=== PATIENT | female | born 1945 | race Caucasian/White ===

== ENCOUNTER 2023-10-28 11:56 | Outpatient (CLI) | payer MEDICARE, OTHER, SELFPAY ==
--- NOTE | 2023-10-28 12:49 | W.ANESCHARGE ---
Anesthesia Charges Start Date/Time Anesthesia Start Date: 10/28/23 Anesthesia Start Time: 13:15 Stop Date/Time Anesthesia Stop Date: 10/28/23 Anesthesia Stop Time: 13:30 Summary Extremes of Age - Over 70 or under 1: MDA
--- NOTE | 2023-10-28 13:33 | W.ANESCHARGE ---
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
== END 2023-10-28 11:57 | disposition home or self-care (01) ==
LOC: OP CLINIC 11:59
PROVIDERS: PCP Student in an Organized Health Care Education/Training Program; Visit Provider Internal Medicine Gastroenterology
DX: R10.13 Epigastric pain (principal); K44.9 Diaphragmatic hernia without obstruction or gangrene; R11.0 Nausea
CPT/HCPCS: 00731; 43239; 88305; 99100; J2704

== ENCOUNTER 2023-11-14 13:10 | Outpatient (RCR) | payer MEDICARE, OTHER, SELFPAY ==
--- NOTE | 2023-11-14 14:33 | PT.OPEX ---
PT [facility] PT [facility] Eval Start: 11/14/23 13:12 Freq: Status: Active Protocol: Document 11/14/23 13:13 CRP (Rec: 11/14/23 14:32 CRP [id number]) E-signed By David Medel PT Physical Therapy Outpatient Evaluation Insurance Information Recert Due Date 11/29/23 Insurance Name Medicare B Medical Diagnosis Pre-op ELIU Referring MD Dr Queen Subjective Subjective Pt reports that she has had issues of L hip pain. Began with just feeling like she strained her groin. About a month ago she started having L hip pain and pain that radiated down her ant thigh. Pt has some degree of pain at all times. 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 Needs to be careful of how she sits due to pain as well. Pt walks with a cane. Does not have a specific exer routine. Lives in home with 10 + steps down to basement and 10+ up to upper level. Usually would walk daily in the neighborhood and has generally been very active but cannot do that now secondary to pain. Pt is scheduled for ELIU 11-29-23 and is here in PT to learn pre-op exercises and strategies. PMHx: Hiatal hernia, bilat TKA , R ELIU, pacemaker Pain Comments 12/28 when most painful Current Work Status Retired Objective Other/Pertinent Objective Gait: Amb with Single end cane Sit to stand with needing to partially push up using hands Sit<>Supine slow and guarded with significant difficulty bringing L LE up onto table Hip ROM: R WFL. L flex 90 deg with pain, ER 30 deg, IR to neutral. All motions painful. MMT: Hip flex L - unable to hold against gravity. Hip abd 4-/5. Hip ext - unable to test. Knee flex L 4-/5. Knee ext L 4-/5 Assessment Assessment/Impression Pt presents to the clinic with ongoing issues of pain and loss of function secondary to L hip DJD. Pt attended PT today for a one time pre-op visit to learn exercise to prepare for her surgery. Pt showed a good understanding of her HEP and all questions were answered. Pt will return to PT following her surgery if needed. 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 Coordination/Communication With Referral Source Treatment Plan/Direct Interventions Self-Care/Home Management, Therapeutic Activities, Therapeutic Exercises Frequency/Duration One time pre-op visit Patient Will Be Discharged From Therapy Independent w/HEP Evaluation Billing Untimed Code Treatment Minutes 30 Complexity Moderate Certification Information Initial Certification Date 11/14/23 Ending Certification Date 11/29/23 Provider Signature Required Yes Provider Signature Shows Agreement With POC & Medical Necessity Physician NPI Number Write NPI# Here Physician Comment/Change : Physician Signature & Date Requested Please Sign/Date Here
== END 2024-03-13 23:59 | disposition home or self-care (01) ==
PROVIDERS: PCP Internal Medicine; Visit Provider Orthopaedic Surgery
DX: M16.12 Unilateral primary osteoarthritis, left hip (principal); Z96.642 Presence of left artificial hip joint; Z51.89 Encounter for other specified aftercare
CPT/HCPCS: 97110; 97162

== ENCOUNTER 2023-11-29 07:17 | Day surgery (SDC) | payer MEDICARE, OTHER, SELFPAY ==
[2023-11-29] VITALS (30 sets, daily range): BP systolic 102–156; BP diastolic 58–117; PULSE 60–86; RESP 10–18; TEMP 36.1–36.8; O2SAT 91–100; BMI 21.1
[2023-11-29] MEDS: SODIUM CHLORIDE 0.9 % (FLUSH) 10 ML SYRINGE IVF ×2 (07:40→16:50)
[2023-11-29] MEDS: LACTATED RINGERS 1000 ML 1,000 ML 100 ML IV ×2 (07:40→10:56)
[2023-11-29] MEDS: MIDAZOLAM HCL 1 MG/ML inj IVP (08:40)
[2023-11-29] MEDS: fentaNYL 100 MCG/2 ML inj IVP (08:40)
--- NOTE | 2023-11-29 08:55 | SUR.PREOP ---
TIME?OUT:?0845 PT/Willem COLEMAN RN/Iker BARRY MDA?VERIFICATION?OF?SURGICAL?SITE,?PROCEDURE,?AND?CONSENT OBTAINED?PRIOR?TO?INVASIVE?PROCEDURE.
--- NOTE | 2023-11-29 08:58 | W.ANESCHARGE ---
Anesthesia Charges Start Date/Time Anesthesia Start Date: 11/29/23 Anesthesia Start Time: 09:17 Stop Date/Time Anesthesia Stop Date: 11/29/23 Anesthesia Stop Time: 11:32 Summary Extremes of Age - Over 70 or under 1: MDA
--- NOTE | 2023-11-29 08:59 | P.NB_ITS ---
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 Images saved: Yes Medications given in 5ml increments after negative aspiration: Ropivicaine %: 0.5 mL: 30 Needle gauge: 20 Decadron (mg): 10 Precedex (mcg): 25 Patient tolerated procedure well: Yes Additional comments: Needle noted below psoas tendon needle noted adjacent to LFCN Block Charges Block Charge (with Pro Fee): Other Periph Nerve Block Use of Ultrasound Machine for Block: Yes- US Guidance/pain block
[2023-11-29] MEDS: CEFAZOLIN 2 GM INJ IVP (09:29)
[2023-11-29] MEDS: TRANEXAMIC ACID 100 MG/ML INJ 1000 MG IV (09:30)
--- NOTE | 2023-11-29 09:45 | CRLHL7_ITS ---
For Patients: As a result of the Cures Act, medical imaging exams and procedure reports are released immediately into your electronic medical record. You may view this report before your referring provider. If you have questions, please contact your health care provider. Indication: Hip replacement surgery Technique: AP hip fluoroscopic images. Fluoroscopy time 54.4 seconds. Findings/Impression: Hardware from a left total hip arthroplasty is in satisfactory position. Dictated by Corey Escalante MD @ 11/29/2023 12:22:11 PM (Electronically Signed)
--- NOTE | 2023-11-29 10:48 | CRLHL7_ITS ---
For Patients: As a result of the Cures Act, medical imaging exams and procedure reports are released immediately into your electronic medical record. You may view this report before your referring provider. If you have questions, please contact your health care provider. Indication: Postop left hip Technique: AP pelvis and lateral view left hip Findings/Impression: Hardware from a left total hip arthroplasty is in satisfactory position. Bone alignment is normal. No sign of acute fracture. Postop changes are within normal limits. Dictated by Corey Escalante MD @ 11/29/2023 12:19:53 PM (Electronically Signed)
--- NOTE | 2023-11-29 10:53 | PM.ORPRC ---
Procedure Note Date of procedure: 11/29/23 Procedure: PREOPERATIVE DIAGNOSIS: Left hip osteoarthritis POSTOPERATIVE DIAGNOSIS: Left hip osteoarthritis NAME OF OPERATION: Left total hip arthroplasty SURGEON: Pelon Queen MD INSURANCE APPLICATION INVESTIGATOR: Selam Graves PA-C, REGAN Mancia IMPLANTS: 1. [employer] # 52 sector ingrowth cup 2. 36 x 52 +4 neutral polyethylene 3. Actis # 6 standard collared ingrowth stem 4. 36 + 1.5 ceramic femoral head ANESTHESIA: General ESTIMATED BLOOD LOSS: 250 cc COMPLICATIONS: None SPECIMENS: None DRAINS: None PREOPERATIVE ANTIBIOTICS: Ancef 1 g INDICATIONS: The patient is a 78-year-old with a longstanding history of severe, unrelenting left hip pain secondary to end-stage left hip osteoarthritis. Despite appropriate nonoperative management, including activity modification, use of an assist device, anti-inflammatories, [id number] pain medication, physical therapy and injections, they continue to have pain and disability. Operative intervention was offered. The risks, benefits and expected outcomes were discussed in detail. These included but were not limited to: Infection, bleeding, injury to blood vessel or nerve, venous thromboembolism. All questions were answered to their satisfaction. Use of an assistant federal public defender was necessary throughout the case for patient positioning and safety, soft tissue retraction and closure. PROCEDURE: The patient was placed supine on the [place] table. General anesthesia was administered. The assistant federal public defender made sure the patient was properly positioned. The left hip was prepped and draped in the usual sterile fashion. The image intensifier was brought in for a perfect AP pelvis and a perfect double tear drop AP view of each hip which were used for intraoperative templating with our fluoroscopic guide. An oblique incision was made 3 cm distal and 3 cm lateral to the anterior superior iliac spine. The assistant federal public defender retracted the soft tissues to protect them. Subcutaneous dissection was taken with electrocautery to the superficial fascia. The fascia was divided in line with the incision. Blunt dissection was carried medially to the tensor fascia charleen and sartorius interval. Deep dissection was carried with electrocautery. The circumflex vessels were cauterized and divided. The capsule was exposed and then divided in a T-fashion, tagged with #1 Ethibond sutures. Retractors were placed in the joint, held by the assistant federal public defender. The corkscrew was placed in the femoral head. The neck cut was made in the subcapital region. We made a second neck cut more distal. The napkin ring of bone was removed. The femoral head was removed intact. Acetabular retractors were placed, held by the assistant federal public defender. The labrum was sharply debrided. The capsule was released. The 43 mm reamer was used to the true medial wall. We then enlarged in 2 mm increments using the image intensifier for our reamer placement. We impacted the cup which had excellent purchase. We placed the polyethylene. Attention was then turned to the proximal femur. The limb was placed in 140 degrees of external rotation, maximum extension and adduction. A significant amount of time was spent releasing the capsule to allow us to deliver the femur into the wound and complete the femoral side safely. Retractors were held by the assistant federal public defender throughout the femoral preparation. The box stapler and canal finder were used. Broaches were used to a stable size. The calcar reamer was used. Trial components were placed. The hip was reduced and was found to be stable with appropriate soft tissue tension. Length and offset had been nicely restored using the image intensifier and our fluoroscopic guide. Trial components were removed. The stem was impacted. We placed the femoral head. Again, the hip was reduced and was found to be stable with appropriate soft tissue tension. Length and offset had been nicely restored. The assistant federal public defender did a three minute dilute Betadine solution soak. The assistant federal public defender irrigated the wound with 3 liters of normal saline via pulse lavage. The assistant federal public defender repaired the anterior capsule with a #1 Vicryl and our previously placed Ethibond sutures. The assistant federal public defender closed the fascia over the tensor fascia charleen with a #1 PDO Stratafix, subcutaneous tissues with 2-0 Vicryl, skin with a running 3-0 Stratafix and glue. A dry dressing was applied by the assistant federal public defender. Sponge and needle counts were correct x 2. The patient tolerated the procedure well; there were no apparent complications. They were awakened and extubated in the operating room, sent to the Post-Anesthesia Care Unit in satisfactory condition. PLAN: 1. The patient will be mobilized with physical therapy, weight-bearing as tolerates 2. Xarelto x 5 days then aspirin x 30 days will be used for DVT prophylaxis 3. The patient will be discharged once medically appropriate
--- NOTE | 2023-11-29 11:35 | P.ANES_ITS ---
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
[2023-11-29] MEDS: CEFAZOLIN 1 GM in 0.9 % SODIUM CHLORIDE Mini-bag 100 ML IVPB ×2 (16:38→23:39)
[2023-11-29] MEDS: HYDROmorphone 0.5 mg/0.5 ml inj IVP ×2 (16:39→18:43)
[2023-11-29] MEDS: LACTATED RINGERS 1000 ML 1,000 ML 75 ML IV (16:41)
--- NOTE | 2023-11-29 17:44 | P.IMCN_ITS ---
Date of Consult Patient: [facility] Patient Consult date: 11/29/23 Primary Care Provider: Eli Quintanilla MD Consult Narrative Reason for consult: Medical management Narrative: Kiara Britton is a 78 year old female with a history of DM II, hypertension, hyperlipidemia, non-ischemic cardiomyopathy status post ICD implantation a who was admitted today for left total hip arthroplasty. Patient 's congestive heart failure looks compensated and her diabetes is under reasonable control. When I met the pt, she looked comfortable post-op, hemodynamically stable. Pain is controlled with medication. No urinary symptoms, last bowel movement was today morning. Patient is tolerating liquids and she is about to have dinner. Review of Systems Status of ROS: Reports: 10 or more systems reviewed and unremarkable except as noted in History and below PFSH COUNT INCLUDES THE [facility] Medical History (Updated 11/29/23 @ 18:02 by Elissa Jensen MD) Normocytic anemia ?D64.9 - Anemia, unspecified (ICD-10) Droopy eyelid ?H02.409 - Unspecified ptosis of unspecified eyelid (ICD-10) Sensorineural hearing loss (SNHL) of both ears ?H90.3 - Sensorineural hearing loss, bilateral (ICD-10) Hyperplastic colon polyp ?K63.5 - Polyp of colon (ICD-10) Diverticulosis of colon ?K57.30 - Diverticulosis of large intestine without perforation or abscess without bleeding (ICD-10) Weight loss, unintentional ?R63.4 - Abnormal weight loss (ICD-10) Scoliosis ?M41.9 - Scoliosis, unspecified (ICD-10) Ankylosing spondylitis ?M45.9 - Ankylosing spondylitis of unspecified sites in spine (ICD-10) GERD (gastroesophageal reflux disease) ?K21.9 - Gastro-esophageal reflux disease without esophagitis (ICD-10) Hyperlipidemia ?E78.5 - Hyperlipidemia, unspecified (ICD-10) Nonischemic cardiomyopathy ?I42.8 - Other cardiomyopathies (ICD-10) Chronic systolic CHF (congestive heart failure) ?I50.22 - Chronic systolic (congestive) heart failure (ICD-10) LBBB (left bundle branch block) ?I44.7 - Left bundle-branch block, unspecified (ICD-10) Hypertension ?I10 - Essential (primary) hypertension (ICD-10) Anxiety ?F41.9 - Anxiety disorder, unspecified (ICD-10) Diabetes ?E11.9 - Type 2 diabetes mellitus without complications (ICD-10) Hiatal hernia ?K44.9 - Diaphragmatic hernia without obstruction or gangrene (ICD-10) Fifth disease ?B08.3 - Erythema infectiosum [fifth disease] (ICD-10) Cardiac defibrillator in place ?Z95.810 - Presence of automatic (implantable) cardiac defibrillator (ICD-10) Pacemaker ?Z95.0 - Presence of cardiac pacemaker (ICD-10) Surgical History (Updated 11/29/23 @ 17:57 by Elissa Jensen MD) History of hand surgery ?Z98.890 - Other specified postprocedural states (ICD-10) History of left knee replacement ?Z96.652 - Presence of left artificial knee joint (ICD-10) History of knee replacement procedure of right knee ?Z96.651 - Presence of right artificial knee joint (ICD-10) History of tonsillectomy ?Z90.89 - Acquired absence of other organs (ICD-10) History of hysterectomy ?Z90.710 - Acquired absence of both cervix and uterus (ICD-10) History of appendectomy ?Z90.49 - Acquired absence of other specified parts of digestive tract (ICD- 10) History of total right hip replacement (08/24/16) ?Z96.641 - Presence of right artificial hip joint (ICD-10) Social History Smoking Status: Never smoker How often do you have a drink containing alcohol: 2-4 times a month AUDIT-C Alcohol total score: 2 Non-prescribed substance use: denies use Caffeine: Yes Meds Home Medications and Allergies Home Medications ?Medication ?Instructions ?Recorded ?Confirmed ?Type acetaminophen 500 mg tablet 500 mg PO Q6H PRN 11/09/23 11/29/23 History (Tylenol Extra Strength) blood sugar diagnostic (True #10 ea 11/09/23 11/09/23 History Metrix Glucose Test Strip) buspirone 5 mg tablet 5 mg PO BID 11/09/23 11/29/23 History carvedilol 12.5 mg tablet 12.5 mg PO BID 11/09/23 11/29/23 History empagliflozin 10 mg tablet 10 mg PO DAILY 11/09/23 11/29/23 History (Jardiance) metformin 500 mg tablet,extended 500 mg PO BID 11/09/23 11/29/23 History release 24 hr ondansetron 4 mg disintegrating 4 mg PO Q8H PRN 11/09/23 11/29/23 History tablet pantoprazole 40 mg tablet,delayed 40 mg PO DAILY 11/09/23 11/29/23 History release paroxetine HCl 20 mg tablet 20 mg PO DAILY 11/09/23 11/29/23 History pravastatin 80 mg tablet 80 mg PO QPM 11/09/23 11/29/23 History sacubitril 24 mg-valsartan 26 mg 1 tab PO BID 11/09/23 11/29/23 History tablet (Entresto) Allergies Allergy/AdvReac Type Severity Reaction Status Date / Time clarithromycin [From Biaxin] Allergy Unknown Verified 11/29/23 07:34 aspirin Allergy Verified 11/29/23 07:34 [From Excedrin Migraine] caffeine Allergy throat Verified 11/29/23 07:34 [From Excedrin Migraine] swelling lisinopril [From Zestril] Allergy Cough Verified 11/29/23 07:34 oxycodone Allergy Hallucinati Verified 11/29/23 07:34 ng Penicillins Allergy Rash Verified 11/29/23 07:34 pollen extracts Allergy throat Verified 11/29/23 07:34 swelling propoxyphene Allergy throat Verified 11/29/23 07:34 swelling spider venom Allergy Anaphylaxis Verified 11/29/23 07:34 strawberry Allergy Hives Verified 11/29/23 07:34 tobramycin-dexamethasone Allergy Rash Uncoded 11/09/23 09:42 Exam Narrative: Exam Narrative: Physical exam GENERAL: Pleasant, comfortable, no acute distress. HEAD AND NECK: Atraumatic, normocephalic CARDIOVASCULAR: RRR. Normal S1, S2. No murmurs. RESPIRATORY: Clear to auscultation B/L. Good air entry B/L. No wheezes or rhonchi. GASTROINTESTINAL: Not distended, not tender to palpation. NEUROLOGY: Alert, awake, oriented X 3. Normal speech. PSYCH: Normal mood, normal affect. Const: Vital Signs, click to edit/add: Vital Signs - 24 hr 11/29/23 07:47 11/29/23 08:40 11/29/23 08:45 Temperature 97.9 F Pulse Rate 73 62 63 Pulse Rate [Pulse Oximeter] Respiratory Rate 16 16 16 Blood Pressure 139/117 H 156/60 H 138/71 Pulse Oximetry 95 100 100 Oxygen Delivery Me thod Room Air Nasal Cannula Nasal Cannula Oxygen Flow Rate 3 3 11/29/23 09:00 11/29/23 11:28 11/29/23 11:33 Temperature 97.7 F Pulse Rate 65 62 61 Pulse Rate [Pulse Oximeter] Respiratory Rate 16 10 L 10 L Blood Pressure 111/59 L 102/61 111/67 Pulse Oximetry 100 93 96 Oxygen Delivery Me thod Nasal Cannula Room Air Room Air Oxygen Flow Rate 3 11/29/23 11:38 11/29/23 11:43 11/29/23 11:48 Temperature 97.7 F Pulse Rate 62 62 60 Pulse Rate [Pulse Oximeter] Respiratory Rate 10 L 14 14 Blood Pressure 112/60 111/67 109/63 Pulse Oximetry 96 97 95 Oxygen Delivery Me thod Room Air Room Air Room Air Oxygen Flow Rate 11/29/23 11:53 11/29/23 11:58 11/29/23 12:01 Temperature 97.3 F L Pulse Rate 65 60 60 Pulse Rate [Pulse Oximeter] Respiratory Rate 14 14 15 Blood Pressure 121/58 L 118/63 122/66 Pulse Oximetry 96 97 94 Oxygen Delivery Me thod Room Air Room Air Room Air Oxygen Flow Rate 11/29/23 12:15 11/29/23 12:24 11/29/23 12:30 Temperature 97.2 F L 96.9 F L 96.9 F L Pulse Rate 60 64 61 Pulse Rate [Pulse Oximeter] Respiratory Rate 16 16 16 Blood Pressure 127/71 116/77 134/71 Pulse Oximetry 92 94 96 Oxygen Delivery Me thod Room Air Room Air Room Air Oxygen Flow Rate 11/29/23 12:47 11/29/23 13:00 11/29/23 13:30 Temperature 97.5 F L 97.6 F 97.5 F L Pulse Rate 60 61 62 Pulse Rate [Pulse Oximeter] Respiratory Rate 16 18 18 Blood Pressure 126/74 132/81 135/75 Pulse Oximetry 95 95 93 Oxygen Delivery Me thod Room Air Room Air Room Air Oxygen Flow Rate 11/29/23 14:00 11/29/23 15:00 11/29/23 15:54 Temperature 97.9 F 97.2 F L 97.2 F L Pulse Rate 68 81 Pulse Rate [Pulse Oximeter] Respiratory Rate 18 18 18 Blood Pressure 142/75 H 125/72 Pulse Oximetry 95 94 94 Oxygen Delivery Me thod Room Air Room Air Room Air Oxygen Flow Rate 3 11/29/23 15:58 11/29/23 16:00 11/29/23 16:57 Temperature 98.1 F Pulse Rate 76 Pulse Rate [Pulse Oximeter] 80 Respiratory Rate 18 Blood Pressure 118/72 Pulse Oximetry 94 93 Oxygen Delivery Me thod Room Air Room Air Oxygen Flow Rate 11/29/23 17:00 Temperature 98.0 F Pulse Rate 80 Pulse Rate [Pulse Oximeter] Respiratory Rate 18 Blood Pressure 112/64 Pulse Oximetry 91 Oxygen Delivery Me thod Room Air Oxygen Flow Rate Assessment and Plan Assessment and plan (1) Status post total hip replacement, left: Problem comment: - orthopedic surgeon following - early mobilization , weight-bearing as tolerates - physical therapy, occupational therapy - Xarelto x 5 days to be started tomorrow at 9 am, then aspirin x 30 days will be used for DVT prophylaxis - plan for discharge once medically appropriate - will follow-up with PCP and Orthopedics as an outpatient Status: Acute (2) Osteoarthritis of left hip: Problem comment: Status post left total hip replacement today 11/29/2023. Status: Acute (3) Chronic systolic CHF (congestive heart failure): Problem comment: - Compensated heart failure on GDMT - patient is compliant on medications - will resume carvedilol 12.5 b.i.d., empagliflozin 10 mg q.d., - Will hold Entresto tonight because of the systolic blood pressure in the 110s, will resume Entresto on discharge. Status: Acute (4) Nonischemic cardiomyopathy: Problem comment: - on GDMT - status post ICD and pacemaker Status: Acute (5) Diabetes: Problem comment: - on metformin and empagliflozin at home - we resume empagliflozin and hold metformin during her hospital stay - ordered low intensity insulin sliding scale Status: Acute (6) Hypertension: Problem comment: - on Entresto and carvedilol at home Status: Acute (7) Hyperlipidemia: Problem comment: - resume pravastatin 80 mg Status: Acute (8) GERD (gastroesophageal reflux disease): Problem comment: Resume pantoprazole 40 mg q.day Status: Acute (9) Anxiety: Problem comment: -resume paroxetine 20 q.day and buspirone 5 mg b.i.d. Status: Acute (10) Cardiac defibrillator in place: Problem comment: 11/13/13 dual chamber biventricular implantable cardioverter defibrillator Status: Acute Plan As above Total Time Spent Total Time Spent: Time spent: Today I spent 75 minutes seeing the patient, discussing the patient with ER staff, reviewing Expanse and EPIC notes/diagnostics, discussing the care plan with our care time that includes PT/OT, pharmacy, RT, penitentiary and documenting my impressions and plan in the medical record.
[2023-11-29] MEDS: PARoxetine 20 MG TABLET PO (18:26)
--- NOTE | 2023-11-29 19:03 | PC.NURSE ---
Pt is post op day 1, came up to us around 12:00. Dressing is clean, dry and intact. Pt is pleasant, alert and oriented. On a regular diet and tolerating well. Pt is a stand by assist and is tolerating well. Pt has been up to the BR with 950 mL out. Pain has ranged from 5-7/10, it been managed by PRN, see MAR. Daughter at bedside.
[2023-11-29] MEDS: carvediloL 6.25 MG TABLET 12.5 MG PO (20:51)
[2023-11-29] MEDS: BUSPIRONE 10 MG TABLET 5 MG PO (20:51)
[2023-11-29] MEDS: PRAVASTATIN SODIUM 20 MG TABLET 80 MG PO (20:52)
[2023-11-29] MEDS: HYDROmorphone 2 MG TABLET PO (22:54)
[2023-11-30] MEDS: HYDROmorphone 0.5 mg/0.5 ml inj IVP ×2 (03:14→06:15)
[2023-11-30 03:18] VITALS: BP 142/63; PULSE 66; RESP 16; TEMP 36.2; O2SAT 94
[2023-11-30] MEDS: OMEPRAZOLE 20 MG CAPSULE DR 40 MG PO (06:15)
--- NOTE | 2023-11-30 06:46 | PC.NURSE ---
End of shift note [id number]: Pt alert & oriented x 4 and able to make needs known. She is transferring/ambulating with SBA using FWW. IV to R hand patent and SL. Pt has been consistently reporting pain to L hip/leg as 6-7/10 with PRN IV and po Dilaudid administered, ice provided, rest encouraged and repositioning performed. No nonverbal signs of pain noted. CMS to LLE intact. Dressing to L hip C/D/I. Pt has been refusing bilateral plexi pulses despite education provided. VSS and pt has been afebrile. No N/V or c/o CP. ?Pt has been voiding well and continent of bladder. Call light within reach.
[2023-11-30 07:00] LABS: Basophils Absolute Auto 0.01 K/uL (0.00-0.30); Basophils Percent Auto 0.1 % (0.0-3.0); Eosinophils Absolute Auto 0.01 K/uL (0.00-0.50); Eosinophils Percent Auto 0.1 % (0.0-7.0); Hematocrit 32.2 % (33.0-51.0); Hemoglobin* 10.3 gm/dL (12.0-16.0); Lymphocytes Percent Auto 13.5 % (20-44); Mean Corpuscular HGB Conc 32 gm/dL (32-36); Mean Corpuscular Hemoglobin 28 pg (26-34); Mean Corpuscular Volume 89 fL (80-100); Monocytes Percent Auto 6.1 % (0.0-11.0); Neutrophils Percent Auto 80.2 % (42.0-72.0); Platelet Count* 247 K/uL (140-440); RDW Coefficient of Variation % 12.2 % (11.5-15.5); Red Blood Count 3.64 m/uL (4.00-5.20); White Blood Count* 10.09 K/uL (4.50-11.00)
[2023-11-30 07:07] LABS: Slide Review Reflex No
[2023-11-30 07:18] LABS: Potassium* 4.6 mmol/L (3.6-5.1); Sodium* 135 mmol/L (135-149)
[2023-11-30 07:21] LABS: Blood Urea Nitrogen* 25 mg/dL (7-30); Creatinine* 0.8 mg/dL (0.5-1.5); Est. Creatinine Clearance* 41.72; Estimated Glomerular Filt Rate 75 ml/min
[2023-11-30] MEDS: ACETAMINOPHEN 500 MG TABLET 1000 MG PO (08:21)
[2023-11-30] MEDS: HYDROmorphone 2 MG TABLET PO (08:21)
[2023-11-30 08:23] VITALS: BP 122/56; PULSE 81; RESP 14; TEMP 37.3; O2SAT 95
--- NOTE | 2023-11-30 09:08 | PM.ORPN ---
Subjective Subjective Time Seen by Provider: 07:15 Date Seen: 11/30/23 Principal diagnosis: Status post left hip replacement Interval history: Allie is comfortable is morning. She is having breakfast. No nausea or vomiting. She will discharge to home today. Ortho Exam Narrative Exam Narrative: Alert and oriented x3. Patient is in no acute distress. Converses without labored breathing. Hearing is grossly intact. Ambulates with a walker. Examination of the left lower extremity shows dressing is in tact. Mild ecchymosis. Mild soft tissue edema. No erythema or drainage or sign of infection. She is able to straight leg raise. Normal ankle range of motion. CMS intact left lower extremity. Calf is soft and nontender. Const Vital Signs, click to edit/add: Vital Signs - 24 hr 11/29/23 11:28 11/29/23 11:33 11/29/23 11:38 Temperature 97.7 F 97.7 F Pulse Rate 62 61 62 Pulse Rate [Pulse Oximeter] Respiratory Rate 10 L 10 L 10 L Blood Pressure 102/61 111/67 112/60 Blood Pressure [Left Arm] Blood Pressure [Right Arm'] Pulse Oximetry 93 96 96 Oxygen Delivery Method Room Air Room Air Room Air Oxygen Flow Rate 11/29/23 11:43 11/29/23 11:48 11/29/23 11:53 Temperature 97.3 F L Pulse Rate 62 60 65 Pulse Rate [Pulse Oximeter] Respiratory Rate 14 14 14 Blood Pressure 111/67 109/63 121/58 L Blood Pressure [Left Arm] Blood Pressure [Right Arm'] Pulse Oximetry 97 95 96 Oxygen Delivery Method Room Air Room Air Room Air Oxygen Flow Rate 11/29/23 11:58 11/29/23 12:01 11/29/23 12:15 Temperature 97.2 F L Pulse Rate 60 60 60 Pulse Rate [Pulse Oximeter] Respiratory Rate 14 15 16 Blood Pressure 118/63 122/66 127/71 Blood Pressure [Left Arm] Blood Pressure [Right Arm'] Pulse Oximetry 97 94 92 Oxygen Delivery Method Room Air Room Air Room Air Oxygen Flow Rate 11/29/23 12:24 11/29/23 12:30 11/29/23 12:47 Temperature 96.9 F L 96.9 F L 97.5 F L Pulse Rate 64 61 60 Pulse Rate [Pulse Oximeter] Respiratory Rate 16 16 16 Blood Pressure 116/77 134/71 126/74 Blood Pressure [Left Arm] Blood Pressure [Right Arm'] Pulse Oximetry 94 96 95 Oxygen Delivery Method Room Air Room Air Room Air Oxygen Flow Rate 11/29/23 13:00 11/29/23 13:30 11/29/23 14:00 Temperature 97.6 F 97.5 F L 97.9 F Pulse Rate 61 62 68 Pulse Rate [Pulse Oximeter] Respiratory Rate 18 18 18 Blood Pressure 132/81 135/75 142/75 H Blood Pressure [Left Arm] Blood Pressure [Right Arm'] Pulse Oximetry 95 93 95 Oxygen Delivery Method Room Air Room Air Room Air Oxygen Flow Rate 11/29/23 15:00 11/29/23 15:54 11/29/23 15:58 Temperature 97.2 F L 97.2 F L Pulse Rate 81 Pulse Rate [Pulse Oximeter] Respiratory Rate 18 18 Blood Pressure 125/72 Blood Pressure [Left Arm] Blood Pressure [Right Arm'] Pulse Oximetry 94 94 94 Oxygen Delivery Method Room Air Room Air Room Air Oxygen Flow Rate 3 11/29/23 16:00 11/29/23 16:57 11/29/23 17:00 Temperature 98.1 F 98.0 F Pulse Rate 76 80 Pulse Rate [Pulse Oximeter] 80 Respiratory Rate 18 18 Blood Pressure 118/72 112/64 Blood Pressure [Left Arm] Blood Pressure [Right Arm'] Pulse Oximetry 93 91 Oxygen Delivery Method Room Air Room Air Oxygen Flow Rate 11/29/23 18:00 11/29/23 19:33 11/29/23 22:58 Temperature 98.2 F 97.2 F L Pulse Rate 86 Pulse Rate [Pulse Oximeter] 71 Respiratory Rate 18 16 16 Blood Pressure 133/75 Blood Pressure [Left Arm] 112/69 Blood Pressure [Right Arm'] Pulse Oximetry 93 92 92 Oxygen Delivery Method Room Air Room Air Room Air Oxygen Flow Rate 11/29/23 22:59 11/29/23 23:00 11/30/23 03:18 Temperature 97.3 F L 97.2 F L Pulse Rate Pulse Rate [Pulse Oximeter] 77 77 66 Respiratory Rate 16 16 16 Blood Pressure Blood Pressure [Left Arm] 128/80 142/63 H Blood Pressure [Right Arm'] Pulse Oximetry 92 94 Oxygen Delivery Method Room Air Room Air Oxygen Flow Rate 11/30/23 08:23 Temperature 99.2 F Pulse Rate Pulse Rate [Pulse Oximeter] 81 Respiratory Rate 14 Blood Pressure Blood Pressure [Left Arm] Blood Pressure [Right Arm'] 122/56 L Pulse Oximetry 95 Oxygen Delivery Method Room Air Oxygen Flow Rate Assessment and Plan Assessment and plan (1) Status post total hip replacement, left: Problem details: - orthopedic surgeon following - early mobilization , weight-bearing as tolerates - physical therapy, occupational therapy - Xarelto x 5 days to be started tomorrow at 9 am, then aspirin x 30 days will be used for DVT prophylaxis - plan for discharge once medically appropriate - will follow-up with PCP and Orthopedics as an outpatient Status: Acute Assessment and Plan: Plan for discharge is today, and when they meets discharge criteria. DVT prophylaxis upon discharge, Xarelto 10 mg daily for 5 days, then aspirin 81 mg twice daily for 30 days. She states that aspirin use should be fine, she has on her allergy list aspirin with Excedrin as an allergy. If she has any problems she will contact us and we would then use Xarelto for 35 days and DC aspirin. Remove dressing 1 week. Observe wound and phone Orthopedics with any questions or concerns Use Ice on operative hip unrestricted. Return to clinic in 1 week with PA for a wound check Return to clinic in 6 weeks with surgeon Minimize narcotic use. Wean off and discontinue soon as possible. She does not tolerate oxycodone due to hallucinations. She has hydromorphone in the hospital thus far. This will be used for pain along with Tylenol which she has at home. Activities as tolerated. No strenuous activity. Attend outpt PT
[2023-11-30] MEDS: RIVAROXABAN 10 MG TABLET PO (09:42)
[2023-11-30] MEDS: BUSPIRONE 10 MG TABLET 5 MG PO (09:42)
[2023-11-30] MEDS: PARoxetine 20 MG TABLET PO (09:43)
[2023-11-30] MEDS: carvediloL 6.25 MG TABLET 12.5 MG PO ×2 (09:43)
[2023-11-30] MEDS: EMPAGLIFLOZIN 10 MG TABLET PO (09:43)
[2023-11-30] MEDS: SENNOSIDES 1 TAB TABLET 2 TAB PO (09:47)
--- NOTE | 2023-11-30 11:02 | PC.SOCIAL ---
Spoke with pt. to discuss discharge plans. Pt. is being discharged home today. Pt. lives alone on her own home and has a bed and bathroom on the main level. Pt. has a toilet riser, bath bench and walker at home and has set up for her daughter, son, and sister all to take turns staying with her. Pt.'s daughter will transport pt. home today. Pt. is aware she can contact social work at the hospital, if she need additional discharge resources.
--- NOTE | 2023-11-30 11:20 | PC.NURSE ---
Discharge: Patient pleasant and cooperative. Patient vitally stable, lungs clear, BS WNL, IV removed, catheter intact. Patient rates left hip pain 6-7/10, tylenol and dilauded given once. Patient SBA/walker. Left hip dressing, C/D/I. Patient urinating well and tolerating regular diet. Patient signed discharge form, no belongings sheet filled out. Patient had no further questions regarding discharge. Patient left the floor to home by wheelchair with belongings at 1118.
== END 2023-11-30 11:18 | disposition home or self-care (01) ==
LOC: OR 07:19 → MEDSURG 07:24
PROVIDERS: PCP Internal Medicine; Visit Provider Orthopaedic Surgery
PROC: (CPT 27130; principal; 2023-11-29 09:45)
DX: M16.12 Unilateral primary osteoarthritis, left hip (principal); G89.18 Other acute postprocedural pain; E11.9 Type 2 diabetes mellitus without complications; I11.0 Hypertensive heart disease with heart failure; I50.22 Chronic systolic (congestive) heart failure; K21.9 Gastro-esophageal reflux disease without esophagitis; I42.8 Other cardiomyopathies; E78.5 Hyperlipidemia, unspecified; Z95.810 Presence of automatic (implantable) cardiac defibrillator; F41.9 Anxiety disorder, unspecified; Z79.84 Long term (current) use of oral hypoglycemic drugs
CPT/HCPCS: 27130; 01214; 36415; 64450; 73501; 76000; 76942; 82565; 82962; 84132; 84295; 84520; 85025; 86850; 86900; 86901; 97110; 97116; 97161; 97165; 97530; 97535; 99100; A9270; C1776; J0690; J1100; J1170; J2250; J2371; J2405; J2704; J2795; J3010; J7120